=== PATIENT | female | born 2000 | race Caucasian/White ===

== ENCOUNTER 2020-08-12 09:42 | Emergency (ER) | payer OTHER ==
[~2020-08-12 09:42] MED LIST: CLARITIN10 M2 PO; LESSINA-28 TAB1 EACH PO; PRILOSEC20 MG PO; VITAMIN C125 MG PO; ZOLOFT50 MG PO
[2020-08-12 11:18] LABS: BILIRUBIN NEGATIVE (NEGATIVE); BLOOD NEGATIVE Ery/uL (NEGATIVE); CLARITY CLEAR (CLEAR); COLOR YELLOW (YELLOW); GLUCOSE (U) NORMAL (NORMAL); LEUKOCYTES NEGATIVE Leu/uL (NEGATIVE); NITRITE NEGATIVE (NEGATIVE); PROTEIN 1+ mg/dL (NEGATIVE); SPECIFIC GRAVITY >=1.030 (1.001-1.030); UROBILINOGEN 0.2 mg/dL (0.2-1.0)
[2020-08-12 11:20] LABS: BASOPHIL 2.1 % (0-2); EOSINOPHIL 2.1 % (0-5); HCT 40.3 % (37.0-47.0); HGB 14.1 g/dl (12.5-16.0); LYMPHOCYTE 33.8 % (15-48); MCH 30.9 pg (25.0-31.0); MCV 88.4 fL (78.0-100.0); MPV 10.5 fL (6.0-9.5); NEUTROPHIL 54.8 % (41-80); NRBC 0; PLT 225 K/uL (150-400); RBC 4.56 M/uL (4.20-5.40); RDW 11.2 % (11.5-14.0); WBC 5.3 K/uL (4.0-10.5)
[2020-08-12 11:25] LABS: BACTERIA TRACE
[2020-08-12 11:46] LABS: ALBUMIN 4.1 g/dL (3.4-5.0); BILIRUBIN - TOTAL 0.5 mg/dL (0.2-1.0); BUN/CREAT RATIO (CALC) 11.1 RATIO; CREATININE 0.72 mg/dL (0.51-0.95); GLOBULIN (CALCULATION) 2.8 g/dL; POTASSIUM 4.3 mmol/L (3.5-5.1); TOTAL PROTEIN 6.9 g/dL (6.4-8.2)
[2020-08-12] MEDS ORDERED: PEPCID AC20 MG PO (12:21)
[2020-08-12] MEDS ORDERED: ONDANSETRON ODT4 MG PO (12:21)
== END 2020-08-12 12:29 | disposition home or self-care (01) ==
LOC: FER 09:42
PROVIDERS: Emergency Medicine
DX: K21.9 Gastro-esophageal reflux disease without esophagitis (principal); R11.2 Nausea with vomiting, unspecified; R10.13 Epigastric pain; R10.31 Right lower quadrant pain; L02.11 Cutaneous abscess of neck; Z90.49 Acquired absence of other specified parts of digestive tract
CPT/HCPCS: 36415; 80053; 81001; 85025; 99284

== ENCOUNTER 2021-01-19 07:20 | Emergency (ER) | payer OTHER ==
[~2021-01-19 07:20] MED LIST changes: +ONDANSETRON ODT4 MG PO; +PEPCID AC20 MG PO
[2021-01-19 08:06] LABS: BASOPHIL 1.5 % (0-2); EOSINOPHIL 1.1 % (0-5); HCT 41.8 % (37.0-47.0); HGB 14.4 g/dl (12.5-16.0); LYMPHOCYTE 24.4 % (15-48); MCH 30.5 pg (25.0-31.0); MCHC 34.4 g/dL (32.0-36.0); MCV 88.6 fL (78.0-100.0); MPV 10.2 fL (6.0-9.5); NEUTROPHIL 67.8 % (41-80); NRBC 0; PLT 240 K/uL (150-400); RBC 4.72 M/uL (4.20-5.40); RDW 11.1 % (11.5-14.0); WBC 5.4 K/uL (4.0-10.5)
[2021-01-19 08:29] LABS: ALBUMIN 4.5 g/dL (3.4-5.0); BILIRUBIN 1+ mg/dL (NEGATIVE); BILIRUBIN - TOTAL 1.2 mg/dL (0.2-1.0); BLOOD NEGATIVE Ery/uL (NEGATIVE); BUN/CREAT RATIO (CALC) 14.7 RATIO; CLARITY CLEAR (CLEAR); COLOR YELLOW (YELLOW); CREATININE 0.75 mg/dL (0.51-0.95); GLOBULIN (CALCULATION) 2.6 g/dL; GLUCOSE (U) NORMAL (NORMAL); LEUKOCYTES NEGATIVE Leu/uL (NEGATIVE); NITRITE NEGATIVE (NEGATIVE); POTASSIUM 3.9 mmol/L (3.5-5.1); PROTEIN NEGATIVE (NEGATIVE); SPECIFIC GRAVITY >=1.030 (1.001-1.030); TOTAL PROTEIN 7.1 g/dL (6.4-8.2); UROBILINOGEN 0.2 mg/dL (0.2-1.0)
[2021-01-19] MEDS ORDERED: PHENERGAN25 M1 PO (12:45)
[2021-01-19] MEDS ORDERED: ONDANSETRON ODT4 MG PO (12:45)
== END 2021-01-19 13:12 | disposition home or self-care (01) ==
LOC: FER 07:20
PROVIDERS: Emergency Medicine
DX: R11.2 Nausea with vomiting, unspecified (principal); R10.9 Unspecified abdominal pain; E86.0 Dehydration; F17.290 Nicotine dependence, other tobacco product, uncomplicated
CPT/HCPCS: 36415; 80053; 81003; 82150; 83605; 83690; 84145; 85025; J2405; J2765; J7030; Q9967